=== PATIENT | male | born 1990 | race Two or more races ===

== ENCOUNTER 2020-08-04 17:20 | Emergency (ER) | payer MEDICAID ==
[~2020-08-04] VITALS: Ht 170.2 cm; Wt 82.5 kg
[2020-08-04 17:44] VITALS: BP 127/78
[2020-08-04] MEDS ORDERED: ketorolac trometh. 30mg/ml inj. IM ONE (18:25)
[2020-08-04] MEDS ORDERED: cyclobenzaprine 10mg tablet PO ONE (18:30)
== END 2020-08-04 18:48 | disposition home or self-care (01) ==
LOC: ER 17:21
DX: S39.012A Strain of muscle, fascia and tendon of lower back, initial encounter (principal); X58.XXXA Exposure to other specified factors, initial encounter; Y93.89 Activity, other specified; Y92.89 Other specified places as the place of occurrence of the external cause; Y99.8 Other external cause status
CPT/HCPCS: 96372; 99283; J1885